=== PATIENT | female | born 1955 | race Caucasian/White ===

== ENCOUNTER 2025-03-14 18:54 | Emergency (ER) | payer OTHER ==
[2025-03-14 19:13] VITALS: RESP 16; TEMP 97.2
[2025-03-14] MEDS ORDERED: XYLOCAINE 2% HCL 20 ML MDV ONE (19:24)
[2025-03-14] MEDS ORDERED: Adacel Vial IM ONE (19:25)
[2025-03-14] MEDS: Adacel Vial IM ONE (19:27)
[2025-03-14] MEDS: XYLOCAINE 2% HCL 20 ML MDV IJ ONE (19:28)
[2025-03-14 20:03] VITALS: BP 155/88; PULSE 80; O2SAT 97
--- NOTE | 2025-03-14 20:12 | ERPHSYRPT ---
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 Seated on side of bed, vss. Skin PWD. Pt reports cut her right hand index finger on tin can at 1700. Bandaid removed upon arrival to ER. 1.5 cm laceration noted. No active bleeding. A &ox3, vss. Physician History: 1.5 cm laceration to the right index finger. Occurred just prior to arrival. Patient states that she is opening a can at work. Patient works in a custodial. She is not up-to-date on her tetanus shot. She needs tetanus shot tonight. No other falls or trauma. Allergies/Adverse Reactions: cortisone [Cortisone] Allergy (Unknown, Verified 06/09/24 14:59) makes her sick Penicillins Adverse Reaction (Verified 06/09/24 14:59) Home Medications: ALPRAZolam 0.5 MG [xanAX 0.5 MG] 0.5 mg PO TID PRN 08/22/12 [History] Thyroid,Pork [[place] Thyroid] 90 mg PO DAILY 08/22/12 [History] Hx Tetanus, Diphtheria Vaccination/Date Given: No Hx Influenza Vaccination/Date Given: No Hx Pneumococcal Vaccination/Date Given: No Travel Risk - International Travel Have you traveled outside of the country in past 3 weeks: No - Emerging Infectious Disease Are you exhibiting symptoms associated with any current EIDs: Yes - Past Medical History Pertinent Past Medical History: Yes Neurological History: No Pertinent History ENT History: Cataracts Cardiac History: Arrhythmia, Other Respiratory History: No Pertinent History Endocrine Medical History: Hypothyroidism, Other Musculoskeletal History: Arthritis GI Medical History: GERD History: No Pertinent History Psycho-Social History: No Pertinent History Female Reproductive Disorders: No Pertinent History Other Medical History: MVP - Past Surgical History Past Surgical History: Yes Neuro Surgical History: No Pertinent History Cardiac: No Pertinent History Respiratory: No Pertinent History Gastrointestinal: No Pertinent History Genitourinary: No Pertinent History Musculoskeletal: No Pertinent History Female Surgical History: Tubal Ligation - Social History Smoking Status: Never smoker Exposure to second hand smoke: Yes Drug Use: none - Social Determinants of Health Will the patient participate in the screening: Yes Do you worry about a steady place to live?: No Do you have any problems with any of the following?: No known problems In the past 12 months,have you had to go without utilities?: No Transportation Issues: No Has anyone in your support network made you feel unsafe?: No Have you or anyone in your house had to go w/o enough food: No - Nursing Vital Signs Nursing Vital Signs: Initial Vital Signs Pulse Rate 82 03/14/25 19:08 Blood Pressure 168/91 03/14/25 19:08 O2 Sat by Pulse Oximetry 98 03/14/25 19:08 Pain Scale Pain Intensity 0 - Physical Exam SpO2 Interpretation: normal SpO2: 97 Comments: 03/14/25 20:51 Review of Systems Constitutional: Negative for fever. HENT: Negative for congestion. Respiratory: Negative for shortness of breath. Cardiovascular: Negative for chest pain. Gastrointestinal: Negative for abdominal pain. Genitourinary: Negative for dysuria. Musculoskeletal: Negative for back pain. Skin: Negative for rash. Neurological: Negative for headaches. Psychiatric/Behavioral: Negative for behavioral problems. All other systems reviewed and are negative. Physical Exam Vitals signs and nursing note reviewed. Constitutional: Appearance: Patient is well-developed. HENT: Head: Normocephalic and atraumatic. Eyes: Conjunctiva/sclera: Conjunctivae normal. Neck: Musculoskeletal: Normal range of motion. Trachea: No tracheal deviation. Cardiovascular: Rate and Rhythm: Normal rate. Heart sounds normal. Pulmonary: Effort: Pulmonary effort is normal. No respiratory distress. Abdominal: Palpations: Abdomen is soft. Musculoskeletal: General: No deformity. 1.5 cm laceration right index finger. Palmar side, distal to the DIP. Not involving the nailbed. Skin: General: Skin is warm and dry. Neurological/ Psychiatric: Mental Status: Mental status, behavior, interaction with environment is appropriate for patient's age and condition Procedures - Laceration/Wound Repair Right Finger Time of Procedure: 20:52 Wound Location: Right Wound Length (cm): 1.5 Wound's Depth, Shape: linear Wound Explored: clean Irrigated: Yes Hibiclens Prep: Yes Anesthesia: 1% Lidocaine Volume Anesthetic (ccs): 5 Wound Debrided: minimal Wound Repaired With: sutures Suture Size/Type: 4-0 Number Deep Layer Sutures: 3 Sterile Dressing Applied?: Yes Splint Applied?: No Sling Applied?: No - Course Nursing assessment & vital signs reviewed: Yes Ordered Tests: Medication Summary Discontinued Medications Generic Name Dose Route Start Last Admin Trade Name Hugh PRN Reason Stop Dose Admin Diphtheria/Tetanus/Acell Pertussis 0.5 ml 03/14/25 19:17 03/14/25 19:27 Tdap --Diph,Pertuss(Acell),Tet Vac/Pf 0.5 Ml Vial IM 03/14/25 19:18 0.5 ml .ONCE ONE Administration Diphtheria/Tetanus/Acell Pertussis Confirm 03/14/25 19:25 Tdap --Diph,Pertuss(Acell),Tet Vac/Pf 0.5 Ml Vial Administered 03/14/25 19:26 Dose 0.5 ml IM .STK-MED ONE Lidocaine HCl 10 ml 03/14/25 19:17 03/14/25 19:28 Lidocaine Hcl 2% 20 Ml Mdv IJ 03/14/25 19:18 10 ml STAT ONE Administration Lidocaine HCl Confirm 03/14/25 19:24 Lidocaine Hcl 2% 20 Ml Mdv Administered 03/14/25 19:25 Dose 1 ml .ROUTE .STK-MED ONE - Progress Progress: improved Progress Note: 03/14/25 20:53 1.5 cm laceration repaired. See procedure note above for full details. She will need sutures removed in 7 to 10 days. Return here sooner for new or changing symptoms. No signs of infection, will be cleaned extensively. Counseled pt/family regarding: diagnosis, need for follow-up - Departure Departure Disposition: Home Clinical Impression: Finger laceration Condition: Stable Critical Care Time: No Referrals: SHAY SANTANA NP [Primary Care Provider, [facility]] - Follow up/PCP as directed Instructions: Wound Care (DC) Additional Instructions: You will need your sutures out in 7 to 10 days. You may return here or see your PCP. Your PCP should reexamine your wound in 2 to 3 days. You should return here if you experience any erythema, increasing pain, drainage, other signs of infection. You may follow-up at any point in time to the emergency department should you feel that necessary.
== END 2025-03-14 20:20 | disposition home or self-care (01) ==
LOC: ED 18:54
DX: S61.210A Laceration without foreign body of right index finger without damage to nail, initial encounter (principal); W26.8XXA Contact with other sharp object(s), not elsewhere classified, initial encounter; Y99.0 Civilian activity done for income or pay; Z79.899 Other long term (current) drug therapy; Z23 Encounter for immunization